=== PATIENT | male | born 1970 | race Two or more races ===

== ENCOUNTER 2017-06-28 23:41 | Emergency (ER) | payer SELFPAY ==
[2017-06-28 23:52] VITALS: RESP 16; TEMP 98
[2017-06-29 00:31] VITALS: BP 185/105; PULSE 123; O2SAT 96
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
== END 2017-06-29 01:26 | disposition home or self-care (01) ==
LOC: H.ER 23:41
DX: F10.94 Alcohol use, unspecified with alcohol-induced mood disorder (principal); I10 Essential (primary) hypertension; Z00.8 Encounter for other general examination